=== PATIENT | female | born 1965 | race Caucasian/White ===

== ENCOUNTER 2017-01-25 07:12 | Emergency (ER) | payer OTHER | END 2017-01-25 07:15 | disposition home or self-care (01) | LOC: ER 07:12 | DX: J10.1 Influenza due to other identified influenza virus with other respiratory manifestations (principal); I10 Essential (primary) hypertension; M32.9 Systemic lupus erythematosus, unspecified; Z88.1 Allergy status to other antibiotic agents; Z79.899 Other long term (current) drug therapy | CPT/HCPCS: 36415; 87502; 96361; 96374; 96375 ==